=== PATIENT | female | born 1955 | race Caucasian/White ===

== ENCOUNTER 2019-04-12 05:32 | Day surgery (SDC) | payer OTHER ==
[2019-04-10 09:43] LABS: BASOPHILS % (AUTO) 0.9 % (0.0-5.0); EOSINOPHILS % (AUTO) 3.2 % (0.0-8.0); HEMATOCRIT 39.9 % (36-48); MEAN CORPUSCULAR HEMOGLOBIN 29.6 pg (27.0-33.0); MEAN CORPUSCULAR HGB CONC 33.1 g/dL (32.0-36.0); MEAN CORPUSCULAR VOLUME 89.5 fL (79-99); MONOCYTES % (AUTO) 8.3 % (3.0-13.0); NEUTROPHILS % (AUTO) 56.3 % (40.0-77.0); PLATELET COUNT (AUTO) 362 K/uL (130-400); RED BLOOD CELL COUNT(AUTO) 4.46 MIL/uL (4.00-5.50); RED CELL DISTRIBUTION WIDTH 13.3 % (11.0-15.5)
[2019-04-10 09:49] LABS: CREATININE 0.8 mg/dL (0.5-1.5)
[2019-04-10 09:59] LABS: INR 0.93 (0.85-1.15); PARTIAL THROMBOPLASTIN TIME 25.9 SEC (26.3-35.5); PROTHROMBIN TIME 9.8 SEC (9.6-11.6)
[2019-04-10 10:12] VITALS: BP 122/84
[2019-04-10 10:14] VITALS: BP 122/84
[~2019-04-12] VITALS: Ht 157.5 cm; Wt 92.5 kg
[2019-04-12] VITALS (9 sets, daily range): BP systolic 92–132; BP diastolic 53–68
[~2019-04-12 05:32] MED LIST: ALEN70TA10 PO; ASPI-555 PO; CETI10TA57 PO; DOXE10CA2 PO; FLUT1BLS IH; IPRA4AER IH; MONT10TA26 PO; PRAV20TA4 PO; UMEC62.5 IH; VERA120T20 PO; ergocalciferol PO
[2019-04-12] MEDS ORDERED: HEPARIN SODIUM 1000UNIT/ML 10ML VIAL ONE (07:19)
[2019-04-12] MEDS ORDERED: MIDAZOLAM HCL 1 MG/ML 2ML VIAL ONE ×2 (07:19→09:49)
[2019-04-12] MEDS ORDERED: LIDOCAINE HCL 2% 20ML ONE (07:19)
[2019-04-12] MEDS ORDERED: MEPERIDINE-PF 25 MG/ML SYG ONE ×3 (07:19→11:00)
[2019-04-12] MEDS ORDERED: SODIUM CHLORIDE 0.9% 1000ML 1,000 ML IV SCH (08:00)
[2019-04-12] MEDS ORDERED: ISOPROTERENOL HCL 0.2 MG/ML AMP/VIAL/BAG ONE (08:52)
== END 2019-04-12 14:55 | disposition home or self-care (01) ==
LOC: DAH 05:32
PROVIDERS: ATTEND Internal Medicine Cardiovascular Disease
DX: I47.1 Supraventricular tachycardia (principal); Z79.899 Other long term (current) drug therapy; Z79.82 Long term (current) use of aspirin; Z87.891 Personal history of nicotine dependence; Z82.49 Family history of ischemic heart disease and other diseases of the circulatory system; Z82.5 Family history of asthma and other chronic lower respiratory diseases
CPT/HCPCS: 36415; 80048; 85025; 85610; 85730; 93613; 93620; 93621; 93623; A4215; A4216; A4221; A4222; A4223 ×3; A4606; A4649 ×2; A4663; C1730 ×4; C1731; C1732; C1894 ×5; J1644 ×3; J2175 ×3; J2250 ×2; J3490 ×2; 93653; 99156; 99157

== ENCOUNTER 2021-02-15 22:12 | Emergency (ER) | payer OTHER ==
[~2021-02-15 22:12] MED LIST changes: -ALEN70TA10 PO; +ALEN70TA80 PO; -ASPI-555 PO; +ASPI-556 PO; +MONT-39 PO; -MONT10TA26 PO
[2021-02-15] MEDS ORDERED: DILTIAZEM 50MG VIAL IV ONE (22:34)
[2021-02-15] MEDS ORDERED: 0.9%NACL 100ML 100 ML ONE (22:34)
[2021-02-15 23:06] LABS: BASOPHILS % (AUTO) 0.6 % (0.0-5.0); EOSINOPHILS % (AUTO) 2.7 % (0.0-8.0); LYMPHOCYTES % (AUTO) 29.7 % (21.0-51.0); MEAN CORPUSCULAR HEMOGLOBIN 30.6 pg (27.0-33.0); MEAN CORPUSCULAR HGB CONC 34.1 g/dL (32.0-36.0); MEAN CORPUSCULAR VOLUME 89.8 fL (79-99); MONOCYTES % (AUTO) 8.8 % (3.0-13.0); NEUTROPHILS % (AUTO) 57.8 % (40.0-77.0); PLATELET COUNT (AUTO) 404 K/uL (130-400); RED BLOOD CELL COUNT(AUTO) 4.12 MIL/uL (4.00-5.50); WHITE BLOOD COUNT (AUTO) 15.5 K/uL (4.8-10.8)
[2021-02-15 23:11] LABS: CREATININE 1.3 mg/dL (0.5-1.5); POTASSIUM 3.2 mmol/L (3.5-5.1)
[2021-02-15 23:15] LABS: ALBUMIN 3.6 g/dL (3.5-5.0); BILIRUBIN,TOTAL 0.5 mg/dL (0.2-1.0); TOTAL PROTEIN, SERUM 7.2 g/dL (6.0-8.3)
[2021-02-15] MEDS ORDERED: DILTIAZEM 25MG INJ IVP ONE (23:30)
[2021-02-15] MEDS ORDERED: DILTIAZEM 125 MG/25 ML INJ 125 MG in 0.9%NACL 100ML 100 ML IV SCH (23:30)
[2021-02-16] MEDS ORDERED: POTASSIUM BICARB/CIT AC 25 MEQ TABLET.EFF ONE (00:23)
[2021-02-16] MEDS ORDERED: POTASSIUM BICARB/CIT AC 25 MEQ TABLET.EFF PO ONE (00:30)
[2021-02-16 04:41] VITALS: BP 103/63
[2021-02-16] MEDS ORDERED: VERA180T61 PO (04:41)
== END 2021-02-16 04:48 | disposition home or self-care (01) ==
LOC: EDH 22:12
DX: I48.91 Unspecified atrial fibrillation (principal); J44.9 Chronic obstructive pulmonary disease, unspecified; Z79.51 Long term (current) use of inhaled steroids; Z79.82 Long term (current) use of aspirin; Z79.899 Other long term (current) drug therapy
CPT/HCPCS: 36415; 71045; 80053; 82550; 83735; 84484; 85025; 93005 ×2; 96365; 96366; 99291; J3490

== ENCOUNTER → 2021-11-10 | Outpatient (CLI) | payer OTHER ==
[~2021-11-10] MED LIST changes: +PROP225C11 PO; -VERA120T20 PO; +VERA240T96 PO
== END | disposition home or self-care (01) ==
LOC: RAH 13:35
PROVIDERS: ATTEND Family Medicine
DX: R22.1 Localized swelling, mass and lump, neck (principal); Q89.2 Congenital malformations of other endocrine glands; L72.3 Sebaceous cyst
CPT/HCPCS: 70490

== ENCOUNTER 2023-01-19 07:57 | Emergency (ER) | payer OTHER ==
[~2023-01-19] VITALS: Ht 152.4 cm; Wt 98.4 kg
[2023-01-19 09:38] LABS: SARS-CoV-2, RNA, NAAT POSITIVE SARS CoV-2 (NEGATIVE)
[2023-01-19 09:39] LABS: HEMATOCRIT 38.4 % (36-48); MEAN CORPUSCULAR HEMOGLOBIN 30.1 pg (27.0-33.0); MEAN CORPUSCULAR HGB CONC 34.1 g/dL (32.0-36.0); MEAN CORPUSCULAR VOLUME 88.3 fL (79-99); RED BLOOD CELL COUNT(AUTO) 4.35 MIL/uL (4.00-5.50); RED CELL DISTRIBUTION WIDTH 12.6 % (11.0-15.5); WHITE BLOOD COUNT (AUTO) 9.3 K/uL (4.8-10.8)
[2023-01-19 09:39] LABS: INFLUENZA TYPE A Negative For Type A (NEGATIVE); INFLUENZA TYPE B Negative For Type B (NEGATIVE)
[2023-01-19 09:46] LABS: CREATININE 0.8 mg/dL (0.5-1.5); POTASSIUM 3.5 mmol/L (3.5-5.1)
[2023-01-19] MEDS ORDERED: GUAI5LIQ13 PO (11:02)
[2023-01-19 11:18] VITALS: BP 120/72; PULSE 81; RESP 18; O2SAT 93
== END 2023-01-19 11:27 | disposition home or self-care (01) ==
LOC: EDH 07:57
DX: U07.1 COVID-19 (principal); J44.9 Chronic obstructive pulmonary disease, unspecified; I10 Essential (primary) hypertension; E66.9 Obesity, unspecified; E78.00 Pure hypercholesterolemia, unspecified; I48.91 Unspecified atrial fibrillation; M19.90 Unspecified osteoarthritis, unspecified site; Z20.822 Contact with and (suspected) exposure to COVID-19; Z79.82 Long term (current) use of aspirin; Z79.899 Other long term (current) drug therapy; Z90.710 Acquired absence of both cervix and uterus; Z98.890 Other specified postprocedural states
CPT/HCPCS: 99285; 71045; 87635; 80048; 83880; 85027; 87804 ×2; 36415; 93005; C9803

== ENCOUNTER 2023-05-31 04:39 | Emergency (ER) | payer OTHER ==
[~2023-05-31] VITALS: Ht 154.9 cm; Wt 95.3 kg
[~2023-05-31 04:39] MED LIST changes: +AZEL23SP2 NS; +AZIT500T4 PO; +GUAI5LIQ13 PO; +LAGEVRIO PO; +METH4TAB15 PO
[2023-05-31] MEDS: CHARCOAL/SORBITOL 50 GM/240 ML SUSP ONE (05:07)
[2023-05-31 05:08] LABS: BASOPHILS # (AUTO) 0.07 K/uL (0.00-0.20); BASOPHILS % (AUTO) 0.9 % (0.0-5.0); EOSINOPHILS % (AUTO) 3.8 % (0.0-8.0); HEMATOCRIT 38.8 % (36-48); IMMATURE GRANULOCYTE ABSOLUTE 0.03 K/uL (0-1); LYMPHOCYTES # (AUTO) 3.3 K/uL (1.0-4.8); LYMPHOCYTES % (AUTO) 42.5 % (21.0-51.0); MEAN CORPUSCULAR HEMOGLOBIN 30.7 pg (27.0-33.0); MEAN CORPUSCULAR HGB CONC 34.3 g/dL (32.0-36.0); MEAN CORPUSCULAR VOLUME 89.6 fL (79-99); MONOCYTES # (AUTO) 0.7 K/uL (0.1-1.0); MONOCYTES % (AUTO) 9.4 % (3.0-13.0); NEUTROPHILS # (AUTO) 3.4 K/uL (1.8-7.7); PLATELET COUNT (AUTO) 336 K/uL (130-400); RED BLOOD CELL COUNT(AUTO) 4.33 MIL/uL (4.00-5.50); RED CELL DISTRIBUTION WIDTH 12.6 % (11.0-15.5); WHITE BLOOD COUNT (AUTO) 7.9 K/uL (4.8-10.8)
[2023-05-31] MEDS: ONDANSETRON 4MG INJ IVP ONE (05:08)
[2023-05-31] MEDS: ONDANSETRON 4MG INJ ONE (05:08)
[2023-05-31 05:19] LABS: CARBON DIOXIDE 25 mmol/L (21-32); CHLORIDE 104 mmol/L (101-111); CREATININE 0.8 mg/dL (0.5-1.0); GLOMERULAR FILTR. RATE CALC 81 mL/min (>90); GLUCOSE,RANDOM 92 mg/dL (70-105); POTASSIUM 3.4 mmol/L (3.5-5.1); SODIUM SERUM 139 mmol/L (136-145); UREA NITROGEN, BLOOD 13 mg/dL (7-18)
[2023-05-31 05:23] LABS: ALANINE AMINOTRANSFERASE 19 U/L (12-78); ALBUMIN 3.4 g/dL (3.5-5.0); ALCOHOL, BLOOD < 3 mg/dL (0-10); ASPARTATE AMINOTRANSFERASE 31 U/L (10-37); BILIRUBIN,TOTAL 0.7 mg/dL (0.2-1.0); TOTAL PROTEIN, SERUM 7.2 g/dL (6.0-8.3)
[2023-05-31 05:27] LABS: ACETAMINOPHEN < 1 mcg/mL (10-30); SALICYLATE < 2.8 mg/dL (2.8-20.0)
[2023-05-31] MEDS: METOCLOPRAMIDE 10 MG/2 ML VIAL IVP ONE (06:07)
[2023-05-31] MEDS: 0.9%NACL 1000ML 1,000 ML IV ONE (06:26)
[2023-05-31] MEDS: GLUCAGON 1MG KIT 1 MG ML ONE (06:27)
[2023-05-31] MEDS: GLUCAGON 1MG KIT 1 MG ML IV SCH (06:28)
[2023-05-31] MEDS: CALCIUM GLUC 1GM/10ML VIAL IV STA (07:45)
[2023-05-31] MEDS: 0.9%NACL 1000ML 1,000 ML IV SCH (07:46)
[2023-05-31] MEDS: MAG/ALUM/SIMETH 30 ML UDCUP PO ONE (12:39)
[2023-05-31 12:50] LABS: APPEARANCE,URINE CLEAR (CLEAR); BILIRUBIN,URINE NEGATIVE (NEGATIVE); COLOR,URINE YELLOW (YELLOW); GLUCOSE, URINE (UA) NEGATIVE (NEGATIVE); KETONES,URINE NEGATIVE (NEGATIVE); LEUKOCYTE ESTERASE ,URINE NEGATIVE Leu/uL (NEGATIVE); NITRATE,URINE NEGATIVE (NEGATIVE); OCCULT BLOOD,URINE NEGATIVE (NEGATIVE); PH,URINE 5.5 (5.0-8.0); PROTEIN,URINE NEGATIVE (NEGATIVE); UROBILINOGEN,URINE 0.2 mg/dL (0.2-1.0)
[2023-05-31 12:51] LABS: ADD UA MICROSCOPIC NO
[2023-05-31 13:12] VITALS: BP 127/70; PULSE 70; RESP 17; O2SAT 95
== END 2023-05-31 13:37 | disposition home or self-care (01) ==
LOC: EDH 04:39
DX: T46.1X1A Poisoning by calcium-channel blockers, accidental (unintentional), initial encounter (principal); E66.9 Obesity, unspecified; I48.91 Unspecified atrial fibrillation; J44.9 Chronic obstructive pulmonary disease, unspecified; Z79.82 Long term (current) use of aspirin; Z79.899 Other long term (current) drug therapy; Z98.890 Other specified postprocedural states; Y92.89 Other specified places as the place of occurrence of the external cause
CPT/HCPCS: 99284; 96374; 96361; 96375 ×2; 80053; 85025; 36415; 93005; 81003; J1610; J0612; G0481; J2405; J2765

== ENCOUNTER 2024-10-03 14:25 | Emergency (ER) | payer OTHER ==
[~2024-10-03] VITALS: Ht 154.9 cm; Wt 93.9 kg
[~2024-10-03 14:25] MED LIST changes: -GUAI5LIQ13 PO; +GUAI5SYR10 PO; -PRAV20TA4 PO; +PRAV20TA59 PO
--- NOTE | 2024-10-03 15:10 | NUR ---
LEFT FOOT PUNCTURE WOUND CLEANED AND DRESSED
[2024-10-03 15:12] VITALS: BP 150/90; PULSE 100; RESP 16; TEMP 98.3; O2SAT 98
[2024-10-03] MEDS ORDERED: CEPH500B PO (15:32)
--- NOTE | 2024-10-03 15:32 | ERN ---
General Chief Complaint: FOOT INJURY/PAIN Stated Complaint: FOOT PROBLEM Time Seen by MD: 14:26 Source: patient History of Present Illness Initial Comments Is a 69-year-old female coming in complaining of wound to the left foot. Per patient she stepped on a thermometer earlier. She states that the thermometer came out intact and she is more concerned with the wound. Allergies: Coded Allergies: No Known Drug Allergies (Verified Allergy, Unknown, 03/05/19) Home Meds Active Scripts Azithromycin (Azithromycin) 500 Mg Tablet, 500 MG PO DAILY, #5 TAB Prov:VERONICA HOWELL I COBOL ENGINEER 04/21/23 Guaifenesin/Dextromethorphan (Guaifenesin-Dm 100-10 mg/5 ml) 100 Mg-10 Mg/5 Ml Liquid, 5 ML PO Q4HPRN PRN for COUGH, #200 ML Prov:MINA SUBRAMANIAN MD 01/19/23 Propafenone HCl (Rythmol Sr) 225 Mg Cap.er.12h, 225 MG PO BID, #60 CAPSULE.DR 3 Refills Prov:MELINDA BALDWIN MD 10/12/21 Verapamil HCl (Calan Sr/Isoptin Sr) 240 Mg Srtab, 120 MG PO DAILY, #30 TAB.SR 3 Refills Prov:MELINDA BALDWIN MD 10/12/21 Reported Medications Methylprednisolone (Methylprednisolone) 4 Mg Tab.ds.pk, 4 MG PO AD 04/18/23 [Lagevrio] No Conflict Check, 200 MG PO 04/18/23 Azelastine/Fluticasone (Azelastin-Flutic 137-50Mcg Spr) 137 Mcg-50 Mcg/[place].pump, 23 GM NS BID 04/18/23 Fluticasone/Vilanterol (Breo Ellipta 200-25 Mcg INH) 1 Each Blst.w.dev, 1 EACH IH HS 04/10/19 Alendronate Sodium (Alendronate Sodium) 70 Mg Tablet, 70 MG PO weekly, TAB 04/10/19 [ergocalciferol] No Conflict Check, 1.25 MG PO HS 04/10/19 Ipratropium/Albuterol Sulfate (Combivent Respimat Inhal [place]) 4 Gm Aer.w.adap, 2 PUFF IH AD 03/07/19 Umeclidinium [place] (Incruse Ellipta) 62.5 Mcg Blst.w.dev, 1 PUFF IH DAILY 03/07/19 Cetirizine HCl (Cetirizine HCl) 10 Mg Tablet, 10 MG PO HS, TAB 03/07/19 Aspirin (Aspir 81) 81 Mg Tablet.dr, 81 MG PO HS, TAB 03/07/19 Montelukast Sodium (Montelukast Sodium) 10 Mg Tablet, 10 MG PO HS, TAB 03/07/19 Doxepin HCl (Doxepin HCl) 10 Mg Capsule, 20 MG PO HS, CAP 03/07/19 Pravastatin Sodium (Pravastatin Sodium) 20 Mg Tablet, 20 MG PO HS, TAB 03/07/19 Past Medical History Past Medical History: Arrythmia, COPD Medical History Other: obesity Past Surgical History: Hysterectomy Surgical History Other: RT HAND SX, BILAT CALF WOUND SX Family History Family History: Negative Social History Social History: Other ROS Dictation CONSTITUTIONAL: No chills, no fever, no weakness, no diaphoresis, no malaise. HEAD/FACE: No signs of trauma. EENT: No eye pain, no blurred vision, no tearing, no double vision, no ear p ain, no ear discharge, no nose pain, no nasal congestion, no throat pain, no throat swelling, no mouth pain. RESPIRATORY: No cough, no orthopnea, no SOB, no stridor, no wheezing. CARDIOVASCULAR: No chest pain, no edema, no palpitations, no syncope. GASTROINTESTINAL/ABDOMINAL: No abdominal pain, no constipation, no diarrhea, no nausea, no vomiting. GENITOURINARY: No abnormal discharge, no dysuria, no frequent urination, no hematuria. No complaints of pain in the genitals. MUSCULOSKELETAL: No back pain, no gout, no joint pain, no joint swelling, no muscle pain, no muscle stiffness, no neck pain. INTEGUMENTARY: No change in color, no change in hair/nails, no dryness, lesion, no lumps, no rash. NEUROLOGICAL/PSYCH: No anxiety, not depressed, no emotional problem, no headache, no numbness, no pre-existing deficit, no history of seizures, no tremors, no weakness. HEMATOLOGIC/LYMPHATIC: Not anemic, no history of blood clots, no apparent bleeding, no bruising, glands not swollen. All Systems Negative, Except as Noted. Physical Exam Physical Exam Dictation VITAL SIGNS: Reviewed. GENERAL APPEARANCE: Alert, oriented x3, no acute distress, obese. HEAD AND FACE: Non-traumatic. EYES: PERRL, pink conjunctivas, eyelid no trauma, anterior chamber clear. EARS: Pinnas intact and no signs of trauma or erythema. Ear canals clear and no discharge. TMs no erythema. NOSE: No discharge, no bleeding. OROPHARYNX: Mouth normal, teeth no caries, tongue pink. Pharynx clear, no erythema. Tonsils no exudates, no abscesses noted. Mucous membrane moist. NECK: Supple, non-tender, no thyromegaly, no masses, no JVD, no bruits. BREAST: Deferred. CHEST: No tenderness, no crepitus, no paradoxical movement, no retractions. LUNGS: Clear, well-ventilated, symmetric, no rales, no wheezing, no rhonchi, no stridor, good breath sounds bilaterally. HEART: Regular rate, regular rhythm, no murmur, no gallops. VASCULAR: No peripheral edema. ABDOMEN: Soft, positive bowel sounds, nondistended, no guarding, nontender, no rebound, no masses no hepatomegaly, no splenomegaly, no Light's sign, no hernias. RECTAL: Deferred. GENITAL: Deferred. NEUROLOGICAL: Normal speech, gross motor function intact, gross sensory function intact. MUSCULOSKELETAL: Neck nontender, full range of motion, back nontender, full range of motion. EXTREMITIES: Nontender, full range of motion. SKIN: Color pink, dry, no turgor, no rash, no lacerations, abrasions, no contusions. LYMPHATICS: Deferred. Results Laboratory and Microbiology Labs Reviewed?: Yes MDM MDM: Differential diagnosis: Wound evaluation, puncture wound, Rationale: Tests considered and ordered secondary to shared decision making include: Previous outside records reviewed: Old ER visits. Risk of complication and/or morbidity or mortality of patient management: None Medications-Per medication reconciliation Need for hospitalization: Patient does not meet criteria for hospitalization. Need for emergency major/minor surgery: No Patient is a 69-year-old female coming in complaining of left foot wound. Per patient she stepped on a thermometer earlier today and noticed the puncture on her foot. Wound was cleaned thoroughly antibiotics were given. Patient will be discharged in stable condition with a diagnosis of puncture wound to the foot antibiotics will be prescribed for ongoing treatment. ED Course Orders Procedure Category Date Status Time Tetanus,Diphtheria PHA 10/03/24 Complete Tox [Adult] (Diphther 14:30 Ceftriaxone 1g Vial PHA 10/03/24 Complete (Rocephine 1g Inj) 14:30 Current Medications Medications (Trade) Dose Ordered Sig/Senthil Route PRN Reason Start Time Stop Time Status Last Admin Dose Admin Ceftriaxone Sodium (ROCEphine 1G INJ) 1 gm ONCE ONCE IM 10/03/24 14:30 10/03/24 14:36 DC 10/03/24 14:47 Tetanus/ Diphtheria Toxoids Adsorbed (DiphthERIA-teTANUS TOXOID [ADULT]/ DECAVAC) 0.5 ml ONCE ONCE IM 10/03/24 14:30 10/03/24 14:36 DC 10/03/24 14:48 Vital Signs Date Time Temp Pulse Resp B/P (MAP) Pulse Ox O2 Delivery O2 Flow Rate FiO2 10/03/24 15:12 98.2 100 16 150/90 98 Room Air* 0 21 10/03/24 14:29 98.2 104 20 159/97 95 Room Air* 0 21 10/03/24 14:26 98.2 104 20 139/97 0 0 DX & DISP Disposition: Discharge Departure Impression: Primary Impression: Puncture wound of left foot Condition: Stable Scripts Cephalexin Monohydrate (Keflex) 500 Mg Cap 1 CAP PO TID for 10 Days, #30 CAP 0 Refills Prov: SILVERIO LYONS MD 10/03/24 Additional Instructions: FOLLOW-UP WITH PRIMARY CARE PROVIDER IN 1 TO 2 DAYS. TAKE MEDICATIONS DIRECTED HERE IN THE EMERGENCY ROOM. OKAY TO CONTINUE HOME MEDICATIONS UNLESS OTHERWISE DISCUSSED DURING YOUR VISIT IN THE EMERGENCY ROOM TODAY. RETURN TO YOUR NEAREST EMERGENCY ROOM IF SYMPTOMS WORSEN OR IF THERE IS NO IMPROVEMENT. CALL 911 IF YOU NEED IMMEDIATE ASSISTANCE. TAKE TYLENOL [id number] NEEDED AND IF NO CONTRAINDICATIONS ARE PRESENT. INCREASE ORAL HYDRATION. A WOUND CULTURE OR URINE CULTURE WAS ORDERED HERE IN THE EMERGENCY ROOM DEPARTMENT PLEASE FOLLOW-UP WITH PRIMARY CARE PROVIDER AND ADVISE THEM TO GET REPORTS FROM OUR FACILITY. IF YOU HAD ANY JUAN CARLOS WRAP/SPLINTS THAT WERE APPLIED HERE, PLEASE DO NOT REMOVE THEM UNTIL YOU SEE YOUR PRIMARY CARE OR SPECIALTY. Referrals: Referrals: ALISHA SALCIDO MD (PCP) Time of Disposition: 15:31 SILVERIO LYONS MD Oct 03, 2024 15:32
== END 2024-10-03 16:04 | disposition home or self-care (01) ==
LOC: EDH 14:25
DX: S91.332A Puncture wound without foreign body, left foot, initial encounter (principal); E66.9 Obesity, unspecified; J44.9 Chronic obstructive pulmonary disease, unspecified; Z79.51 Long term (current) use of inhaled steroids; Z79.82 Long term (current) use of aspirin; Z79.899 Other long term (current) drug therapy; Z90.710 Acquired absence of both cervix and uterus; Z68.39 Body mass index [BMI] 39.0-39.9, adult; W22.8XXA Striking against or struck by other objects, initial encounter; Y93.89 Activity, other specified; Y92.89 Other specified places as the place of occurrence of the external cause; Y99.8 Other external cause status
CPT/HCPCS: 99284; 90714; 96372; 90471; J0696

== ENCOUNTER 2024-10-22 17:58 | Emergency (ER) | payer OTHER ==
[~2024-10-22] VITALS: Ht 154.9 cm; Wt 93.9 kg
[~2024-10-22 17:58] MED LIST changes: +CEPH500B PO
--- NOTE | 2024-10-22 19:54 | ERN ---
General Chief Complaint: LOWER EXTREMITY EDEMA Stated Complaint: LEFT LEG PAIN Time Seen by MD: 19:11 Source: patient History of Present Illness Initial Comments Patient is a 69-year-old female coming in complaining of lower left extremity swelling. Per patient she stepped a thermometer two weeks ago was evaluated at er and was sent home. She states that a couple of days ago she noticed her left ankle swelling and tender to touch. Allergies: Coded Allergies: No Known Drug Allergies (Verified Allergy, Unknown, 03/05/19) Home Meds Active Scripts Cephalexin Monohydrate (Keflex) 500 Mg Cap, 1 CAP PO TID for 10 Days, #30 CAP 0 Refills Prov:SILVERIO LYONS MD 10/03/24 Azithromycin (Azithromycin) 500 Mg Tablet, 500 MG PO DAILY, #5 TAB Prov:VERONICA HOWELL NP 04/21/23 Guaifenesin/Dextromethorphan (Guaifenesin-Dm 100-10 mg/5 ml) 100 Mg-10 Mg/5 Ml Liquid, 5 ML PO Q4HPRN PRN for COUGH, #200 ML Prov:MINA SUBRAMANIAN MD 01/19/23 Propafenone HCl (Rythmol Sr) 225 Mg Cap.er.12h, 225 MG PO BID, #60 CAPSULE.DR 3 Refills Prov:MELINDA BALDWIN MD 10/12/21 Verapamil HCl (Calan Sr/Isoptin Sr) 240 Mg Srtab, 120 MG PO DAILY, #30 TAB.SR 3 Refills Prov:MELINDA BALDWIN MD 10/12/21 Reported Medications Methylprednisolone (Methylprednisolone) 4 Mg Tab.ds.pk, 4 MG PO AD 04/18/23 [Lagevrio] No Conflict Check, 200 MG PO 04/18/23 Azelastine/Fluticasone (Azelastin-Flutic 137-50Mcg Spr) 137 Mcg-50 Mcg/[place].pump, 23 GM NS BID 04/18/23 Fluticasone/Vilanterol (Breo Ellipta 200-25 Mcg INH) 1 Each Blst.w.dev, 1 EACH IH HS 04/10/19 Alendronate Sodium (Alendronate Sodium) 70 Mg Tablet, 70 MG PO weekly, TAB 04/10/19 [ergocalciferol] No Conflict Check, 1.25 MG PO HS 04/10/19 Ipratropium/Albuterol Sulfate (Combivent Respimat Inhal [place]) 4 Gm Aer.w.adap, 2 PUFF IH AD 03/07/19 Umeclidinium [place] (Incruse Ellipta) 62.5 Mcg Blst.w.dev, 1 PUFF IH DAILY 03/07/19 Cetirizine HCl (Cetirizine HCl) 10 Mg Tablet, 10 MG PO HS, TAB 03/07/19 Aspirin (Aspir 81) 81 Mg Tablet.dr, 81 MG PO HS, TAB 03/07/19 Montelukast Sodium (Montelukast Sodium) 10 Mg Tablet, 10 MG PO HS, TAB 03/07/19 Doxepin HCl (Doxepin HCl) 10 Mg Capsule, 20 MG PO HS, CAP 03/07/19 Pravastatin Sodium (Pravastatin Sodium) 20 Mg Tablet, 20 MG PO HS, TAB 03/07/19 Past Medical History Past Medical History: A-Fib, COPD Medical History Other: obesity Past Surgical History: Hysterectomy Surgical History Other: RT HAND SX, BILAT CALF WOUND SX Family History Family History: Negative Social History Social History: Other ROS Dictation CONSTITUTIONAL: No chills, no fever, no weakness, no diaphoresis, no malaise. HEAD/FACE: No signs of trauma. EENT: No eye pain, no blurred vision, no tearing, no double vision, no ear pain, no ear discharge, no nose pain, no nasal congestion, no throat pain, no throat swelling, no mouth pain. RESPIRATORY: No cough, no orthopnea, no SOB, no stridor, no wheezing. CARDIOVASCULAR: No chest pain, no edema, no palpitations, no syncope. GASTROINTESTINAL/ABDOMINAL: No abdominal pain, no constipation, no diarrhea, no nausea, no vomiting. GENITOURINARY: No abnormal discharge, no dysuria, no frequent urination, no h ematuria. No complaints of pain in the genitals. MUSCULOSKELETAL: No back pain, no gout, no joint pain, no joint swelling, no muscle pain, no muscle stiffness, no neck pain. INTEGUMENTARY: change in color, no change in hair/nails, no dryness, no lesio n, no lumps, no rash. Swelling NEUROLOGICAL/PSYCH: No anxiety, not depressed, no emotional problem, no headache, no numbness, no pre-existing deficit, no history of seizures, no tremors, no weakness. HEMATOLOGIC/LYMPHATIC: Not anemic, no history of blood clots, no apparent bleeding, no bruising, glands not swollen. All Systems Negative, Except as Noted. Physical Exam Physical Exam Dictation VITAL SIGNS: Reviewed. GENERAL APPEARANCE: Alert, oriented x3, no acute distress, obese. HEAD AND FACE: Non-traumatic. EYES: PERRL, pink conjunctivas, eyelid no trauma, anterior chamber clear. EARS: Pinnas intact and no signs of trauma or erythema. Ear canals clear and no discharge. TMs no erythema. NOSE: No discharge, no bleeding. OROPHARYNX: Mouth normal, teeth no caries, tongue pink. Pharynx clear, no erythema. Tonsils no exudates, no abscesses noted. Mucous membrane moist. NECK: Supple, non-tender, no thyromegaly, no masses, no JVD, no bruits. BREAST: Deferred. CHEST: No tenderness, no crepitus, no paradoxical movement, no retractions. LUNGS: Clear, well-ventilated, symmetric, no rales, no wheezing, no rhonchi, no stridor, good breath sounds bilaterally. HEART: Regular rate, regular rhythm, no murmur, no gallops. VASCULAR: No peripheral edema. ABDOMEN: Soft, positive bowel sounds, nondistended, no guarding, nontender, no rebound, no masses no hepatomegaly, no splenomegaly, no Light's sign, no hernias. RECTAL: Deferred. GENITAL: Deferred. NEUROLOGICAL: Normal speech, gross motor function intact, gross sensory function intact. MUSCULOSKELETAL: Neck nontender, full range of motion, back nontender, full range of motion. EXTREMITIES: Nontender, full range of motion. Left lower extremity tenderness to palpation, pedal edema 2+ SKIN: Color pink, dry, no turgor, no rash, no lacerations, no abrasions, no contusions. LYMPHATICS: Deferred. Results Laboratory and Microbiology Lab and Micro Result Laboratory Tests Test 10/22/24 20:08 White Blood Count 9.7 K/uL (4.8-10.8) Red Blood Count 4.20 MIL/uL (4.00-5.50) Hemoglobin 12.8 g/dL (12.0-16.0) Hematocrit 38.1 % (36-48) Mean Corpuscular Volume 90.7 fL (79-99) Mean Corpuscular Hemoglobin 30.5 pg (27.0-33.0) Mean Corpuscular Hemoglobin Concent 33.6 g/dL (32.0-36.0) Red Cell Distribution Width 13.3 % (11.0-15.5) Platelet Count 395 K/uL (130-400) Mean Platelet Volume 9.5 fL (7.5-10.5) Immature Granulocyte % (Auto) 0.3 % (0-1) Neutrophils (%) (Auto) 51.1 % (40.0-77.0) Lymphocytes (%) (Auto) 37.1 % (21.0-51.0) Monocytes (%) (Auto) 8.2 % (3.0-13.0) Eosinophils (%) (Auto) 2.5 % (0.0-8.0) Basophils (%) (Auto) 0.8 % (0.0-5.0) Neutrophils # (Auto) 4.9 K/uL (1.8-7.7) Lymphocytes # (Auto) 3.6 K/uL (1.0-4.8) Monocytes # (Auto) 0.8 K/uL (0.1-1.0) Eosinophils # (Auto) 0.24 K/uL (0.00-0.70) Basophils # (Auto) 0.08 K/uL (0.00-0.20) Absolute Immature Granulocyte (auto 0.03 K/uL (0-1) Nucleated Red Blood Cells 0.0 % (0.0-0.19) Sodium Level 144 mmol/L (136-145) Potassium Level 3.7 mmol/L (3.5-5.1) Chloride Level 106 mmol/L (101-111) Carbon Dioxide Level 31 mmol/L (21-32) Blood Urea Nitrogen 9 mg/dL (7-18) Creatinine 0.8 mg/dL (0.5-1.0) Glomerular Filtration Rate Calc 80 mL/min (>90) Random Glucose 96 mg/dL (70-105) Total Calcium 8.4 mg/dL (8.5-10.1) L Labs Reviewed?: Yes EKG/XRAY/US/CT/MRI Ultrasound Comment Left lower extremity venous ultrasound-NAD MDM MDM: Differential diagnosis: Cellulitis lower extremity, pedal edema, Rationale: Tests considered and ordered secondary to shared decision making include: Previous outside records reviewed: Old ER visits. Risk of complication and/or morbidity or mortality of patient management: None Medications-Per medication reconciliation Need for hospitalization: Patient does not meet criteria for hospitalization. Need for emergency major/minor surgery: No Patient is a 69-year-old female coming in complaining of left ankle pain. Ultrasound did not disclose any clots. Laboratory workup with a normal limits based on the physical findings patient will be discharged in stable condition with with a diagnosis of left lower extremity cellulitis ED Course Orders Procedure Category Date Status Time Cbc With Differential LAB 10/22/24 Complete 19:33 Basic Metabolic Panel LAB 10/22/24 Complete 19:33 Us Venous Doppler US 10/22/24 Taken Unilateral 19:33 Vital Signs Date Time Temp Pulse Resp B/P (MAP) Pulse Ox O2 Delivery O2 Flow Rate FiO2 10/22/24 18:04 99.1 88 18 147/79 95 Room Air* 0 21 10/22/24 18:01 99.1 88 18 147/79 95 Room Air 0 DX & DISP Disposition: Discharge Departure Impression: Primary Impression: Lower extremity cellulitis Condition: Stable Scripts Cephalexin Monohydrate (Keflex) 500 Mg Cap 1 CAP PO TID for 10 Days, #30 CAP 0 Refills Prov: SILVERIO LYONS MD 10/22/24 Additional Instructions: FOLLOW-UP WITH PRIMARY CARE PROVIDER IN 1 TO 2 DAYS. TAKE MEDICATIONS DIRECTED HERE IN THE EMERGENCY ROOM. OKAY TO CONTINUE HOME MEDICATIONS UNLESS OTHERWISE DISCUSSED DURING YOUR VISIT IN THE EMERGENCY ROOM TODAY. RETURN TO YOUR NEAREST EMERGENCY ROOM IF SYMPTOMS WORSEN OR IF THERE IS NO IMPROVEMENT. CALL 911 IF YOU NEED IMMEDIATE ASSISTANCE. TAKE TYLENOL [id number] NEEDED AND IF NO CONTRAINDICATIONS ARE PRESENT. INCREASE ORAL HYDRATION. A WOUND CULTURE OR URINE CULTURE WAS ORDERED HERE IN THE EMERGENCY ROOM DEPARTMENT PLEASE FOLLOW-UP WITH PRIMARY CARE PROVIDER AND ADVISE THEM TO GET REPORTS FROM OUR FACILITY. IF YOU HAD ANY JUAN CARLOS WRAP/SPLINTS THAT WERE APPLIED HERE, PLEASE DO NOT REMOVE THEM UNTIL YOU SEE YOUR PRIMARY CARE OR SPECIALTY. Referrals: Referrals: ALISHA SALCIDO MD (PCP) Time of Disposition: 20:50 SILVERIO LYONS MD Oct 22, 2024 19:54
[2024-10-22 20:26] LABS: IMMATURE GRANULOCYTE ABSOLUTE 0.03 K/uL (0-1); NUCLEATED RED BLOOD CELLS 0.0 % (0.0-0.19); PLATELET COUNT (AUTO) 395 K/uL (130-400); RED BLOOD CELL COUNT(AUTO) 4.20 MIL/uL (4.00-5.50); RED CELL DISTRIBUTION WIDTH 13.3 % (11.0-15.5); WHITE BLOOD COUNT (AUTO) 9.7 K/uL (4.8-10.8)
[2024-10-22 20:34] LABS: CREATININE 0.8 mg/dL (0.5-1.0); GLOMERULAR FILTR. RATE CALC 80.0 mL/min (>90); GLUCOSE,RANDOM 96.0 mg/dL (70-105); SODIUM SERUM 144.0 mmol/L (136-145); UREA NITROGEN, BLOOD 9.0 mg/dL (7-18)
--- NOTE | 2024-10-22 20:53 | HMCIMG ---
EXAMINATION: SPECTRAL DOPPLER ULTRASOUND EXAMINATION OF THE LEFT LOWER EXTREMITY VEINS. CLINICAL HISTORY: Swelling. COMPARISON: Duplex lower extremity veins dated 04/20/2023. TECHNIQUE: Real-time ultrasound scan of the veins of the left lower extremity with color Doppler flow, spectral waveform analysis and compression. FINDINGS: DEEP VEINS: The common femoral, superficial femoral, and popliteal veins are echolucent and compressible. There is normal color Doppler flow throughout. The visualized calf veins appear patent. SUPERFICIAL VEINS: The greater saphenous vein is patent and compressible. SOFT TISSUES: No popliteal fossa cyst or other abnormalities. IMPRESSION: No deep venous thrombosis evident in the left lower extremity. /[place]
[2024-10-22 21:00] VITALS: BP 145/75; PULSE 85; RESP 16; TEMP 98.8; O2SAT 98
== END 2024-10-22 21:03 | disposition home or self-care (01) ==
LOC: EDH 17:58
DX: L03.116 Cellulitis of left lower limb (principal); I48.91 Unspecified atrial fibrillation; J44.9 Chronic obstructive pulmonary disease, unspecified; E66.9 Obesity, unspecified; Z79.51 Long term (current) use of inhaled steroids; Z79.82 Long term (current) use of aspirin; Z79.899 Other long term (current) drug therapy; Z90.710 Acquired absence of both cervix and uterus
CPT/HCPCS: 36415; 80048; 85025; 93971; 99284